=== PATIENT | female | born 1940 | race African-American/Black ===

== ENCOUNTER 2017-08-08 14:25 | Observation (INO) | payer MEDICARE, OTHER ==
[~2017-08-08] VITALS: Ht 165.1 cm; Wt 94.3 kg
[2017-08-08 15:32] LABS: BASOPHILS % 0.5 % (0.0-2.0); EOSINOPHILS % 0.7 % (0.0-5.0); HEMATOCRIT. 38.5 % (36.0-48.0); HEMOGLOBIN. 12.8 g/dL (12.0-16.0); LYMPHOCYTES % 35.9 % (20.0-50.0); MEAN CORPUSCULAR HEMOGLOBIN 29.8 pg (28.0-32.0); MEAN CORPUSCULAR VOLUME 89.8 fL (81.0-99.0); MEAN PLATELET VOLUME 9.2 fl (7.4-10.4); MONOCYTES % 8.1 % (2.0-8.0); NEUTROPHILS % 54.8 % (40.0-76.0); PLATELET 224 x1000/uL (130-400); RED BLOOD CELL COUNT 4.29 mill/uL (4.2-5.4); RED CELL DISTRIBUTION WIDTH 14.2 % (11.6-14.6)
[2017-08-08 15:36] LABS: CHLORIDE 108 mEq/L (98-107)
[2017-08-08 15:38] LABS: INR 1.1; PROTHROMBIN TIME 11.2 sec (9.4-11.6)
[2017-08-08 15:46] LABS: CARBON DIOXIDE 27 mEq/L (21-32)
[2017-08-08 15:48] LABS: TROPONIN I < 0.02 ng/mL (0.00-0.04)
[2017-08-08] MEDS ORDERED: ASPIRIN 325MG TABLET PO ONE (17:30)
[2017-08-08] MEDS ORDERED: CLONIDINE 0.1MG TABLET PO NR (20:00)
[2017-08-08] MEDS ORDERED: IPRATROPIUM/ALBUTEROL 0.5-3(2.5)MG/3ML NEB HHN NR (20:00)
[2017-08-08 20:54] VITALS: BP 203/83
[2017-08-08 22:58] VITALS: BP 203/83
[2017-08-08 23:00] LABS: BG CARBOXYHEMOGLOBIN 0.4 % (0.5-1.5); BG DEOXYHEMOGLOBIN 4.7 % (0.0-5.0); BG FRACTION INSPIRED OXYGEN 21; BG HCO3 ACT 25.4 mmol/L (22.0-26.0); BG METHEMOGLOBIN 0.3 % (0.0-1.5); BG OXYGEN SATURATION 95.3 % (92.0-98.5); BG OXYHEMOGLOBIN 94.6 % (94.0-97.0); BG PCO2 39.5 mmHg (35.0-45.0); BG PH 7.426 (7.350-7.450); BG PO2 74.1 mmHg (75.0-100.0); BG SAMPLE SITE LEFT BRACHIAL; BG TOTAL HEMOGLOBIN 13.2 g/dL (12.0-18.0); BG VENT MODE ROOM AIR
[2017-08-08] MEDS ORDERED: HYDROCODONE/ACETAMINOPHEN 5/325MG TABLET PO PRN (23:15)
[2017-08-08] MEDS ORDERED: ACETAMINOPHEN 650MG/20.3ML UDC PO PRN (23:30)
[2017-08-08] MEDS: FUROSEMIDE 40MG/4ML VIAL IVP SCH (23:46)
[2017-08-08] MEDS: ASPIRIN 81MG TABLET PO SCH (23:46)
[2017-08-08] MEDS: PANTOPRAZOLE 40MG DR TABLET PO SCH (23:46)
[2017-08-08] MEDS: LOSARTAN POTASSIUM 50 MG TABLET PO SCH (23:46)
[2017-08-09] VITALS: BP 191/66
[2017-08-09] MEDS ORDERED: AMLO2.5T2 PO (01:34)
[2017-08-09] MEDS ORDERED: CLON0.1T PO (01:35)
[2017-08-09] MEDS ORDERED: AMLO1TAB39 PO (01:36)
[2017-08-09 04:00] VITALS: BP 180/71
[2017-08-09] MEDS: HYDRALAZINE HCL 50MG TABLET PO SCH ×2 (05:40→12:41)
[2017-08-09] MEDS: CLONIDINE 0.2MG TABLET PO SCH ×2 (05:40→16:27)
[2017-08-09] MEDS: PANTOPRAZOLE 40MG DR TABLET PO SCH (06:25)
[2017-08-09 08:00] VITALS: BP 157/60
[2017-08-09 08:38] LABS: CARBON DIOXIDE 28 mEq/L (21-32); CHLORIDE 107 mEq/L (98-107)
[2017-08-09] MEDS: FUROSEMIDE 40MG/4ML VIAL IVP SCH (08:40)
[2017-08-09] MEDS: ASPIRIN 81MG TABLET PO SCH (08:40)
[2017-08-09] MEDS: LOSARTAN POTASSIUM 50 MG TABLET PO SCH (08:40)
[2017-08-09 08:48] LABS: TROPONIN I 0.02 ng/mL (0.00-0.04)
[2017-08-09] MEDS ORDERED: ENOXAPARIN 30MG/0.3ML SYR SUBCUT SCH (09:00)
[2017-08-09 12:00] VITALS: BP 149/58
[2017-08-09] MEDS ORDERED: MECLIZINE 25MG TABLET PO PRN (12:00)
[2017-08-09 16:00] VITALS: BP 164/62
[2017-08-09 16:31] VITALS: BP 149/58
[2017-08-10] MEDS ORDERED: FAMOTIDINE 20MG TABLET PO SCH (09:00)
== END 2017-08-09 17:34 | disposition home or self-care (01) ==
LOC: ER 15:42 → INTOOBSV 17:27 → 8WST 17:27 → ENRESERV 19:50
PROVIDERS: ADMIT Internal Medicine; ATTEND Internal Medicine
DX: I11.9 Hypertensive heart disease without heart failure (principal); M10.9 Gout, unspecified; E03.9 Hypothyroidism, unspecified; I51.7 Cardiomegaly; J98.11 Atelectasis; Z96.641 Presence of right artificial hip joint
CPT/HCPCS: 36415; 36600; 70450; 71010; 80053; 82375; 82805; 84443; 84484; 84550; 85025; 85610; 93005; 96372; 96374; 96376; 99285; G0378; J1650; J1940; J8597

== ENCOUNTER 2019-11-14 06:33 | Inpatient (IN) | payer MEDICARE, OTHER ==
[~2019-11-14] VITALS: Ht 165.1 cm; Wt 97.1 kg
[~2019-11-14 06:33] MED LIST: LEVO75TA7 MT
[2019-11-14] MEDS ORDERED: FAMOTIDINE 20MG/2ML VIAL IV ONE (06:45)
[2019-11-14] MEDS ORDERED: DIPHENHYDRAMINE 50MG/ML VIAL IV ONE (06:45)
[2019-11-14] MEDS ORDERED: METHYLPREDNISOLONE SOD SUCC 125 MG/2 ML VIAL IV ONE (06:45)
[2019-11-14 07:02] LABS: HEMATOCRIT. 38.8 % (36.0-48.0); LYMPHOCYTES % 53.3 % (20.0-50.0); MEAN CORPUSCULAR HEMOGLOBIN 30.2 pg (28.0-32.0); MEAN CORPUSCULAR VOLUME 90.2 fL (81.0-99.0); MEAN PLATELET VOLUME 9.2 fl (7.4-10.4); MONOCYTES % 10.4 % (2.0-8.0); NEUTROPHILS % 32.3 % (40.0-76.0); PLATELET 310 x1000/uL (130-400); RED CELL DISTRIBUTION WIDTH 14.7 % (11.6-14.6)
[2019-11-14 07:06] LABS: CHLORIDE 106 mEq/L (98-107); INR 0.9; PROTHROMBIN TIME 10.2 sec (9.6-11.0)
[2019-11-14] MEDS ORDERED: ACETAMINOPHEN 650MG SUPP PR PRN (11:45)
[2019-11-14] MEDS ORDERED: IPRATROPIUM/ALBUTEROL 0.5-3(2.5)MG/3ML NEB NEB PRN (11:45)
[2019-11-14] MEDS ORDERED: ONDANSETRON HCL 4MG/2ML INJ IV PRN (11:45)
[2019-11-14 12:55] LABS: BG BASE EXCESS -3.3 mmol/L (-2.0-2.0); BG CARBOXYHEMOGLOBIN 0.3 % (0.5-1.5); BG DEOXYHEMOGLOBIN 4.8 % (0.0-5.0); BG FRACTION INSPIRED OXYGEN 21; BG HCO3 ACT 21.5 mmol/L (22.0-26.0); BG METHEMOGLOBIN 0.4 % (0.0-1.5); BG OXYGEN SATURATION 95.2 % (92.0-98.5); BG OXYHEMOGLOBIN 94.5 % (94.0-97.0); BG PCO2 37.8 mmHg (35.0-45.0); BG PH 7.373 (7.350-7.450); BG PO2 75.8 mmHg (75.0-100.0); BG SAMPLE SITE RIGHT RADIAL; BG TOTAL HEMOGLOBIN 13.8 g/dL (12.0-18.0); BG VENT MODE ROOM AIR
[2019-11-14] MEDS: HYDRALAZINE 20MG/ML VIAL IV PRN ×2 (13:38→18:55)
[2019-11-14] MEDS: MORPHINE SULFATE 2 MG/ML CPJ (NOT FOR IM USE) IV PRN ×2 (13:38→23:05)
[2019-11-14] MEDS: DIPHENHYDRAMINE 50MG/ML VIAL IV SCH ×2 (13:38→18:55)
[2019-11-14] MEDS: DEXT 5%/0.45% NACL 1000ML 1,000 ML IV SCH (13:41)
[2019-11-14] MEDS: METHYLPREDNISOLONE SOD SUCC 40 MG/ML VIAL IV SCH ×2 (14:28→23:05)
[2019-11-14 15:10] LABS: HEMATOCRIT 38.9 % (36.0-48.0); MEAN CORPUSCULAR HEMOGLOBIN 30.3 pg (28.0-32.0); MEAN CORPUSCULAR VOLUME 90.3 fL (81.0-99.0); PLATELET 261 x1000/uL (130-400); RED BLOOD CELL COUNT 4.31 mill/uL (4.2-5.4); RED CELL DISTRIBUTION WIDTH 14.5 % (11.6-14.6)
[2019-11-14 15:14] LABS: CREATINE KINASE 202 IU/L (26-192)
[2019-11-14 15:16] LABS: CREATINE KINASE MB FRACTION < 1.0 ng/mL (0.5-3.6)
[2019-11-14 15:21] LABS: INR 0.9; PROTHROMBIN TIME 10.3 sec (9.6-11.0)
[2019-11-14 22:00] VITALS: BP 170/71
[2019-11-14] MEDS: NITROGLYCERIN OINT 1GM/INCH UDPKT TD SCH (23:06)
[2019-11-14 23:13] VITALS: BP 170/70
[2019-11-15] VITALS (10 sets, daily range): BP systolic 143–173; BP diastolic 60–85
[2019-11-15] MEDS: DEXT 5%/0.45% NACL 1000ML 1,000 ML IV SCH
[2019-11-15] MEDS: DIPHENHYDRAMINE 50MG/ML VIAL IV SCH ×4 (00:09→17:37)
[2019-11-15] MEDS: METHYLPREDNISOLONE SOD SUCC 40 MG/ML VIAL IV SCH ×2 (05:36→13:39)
[2019-11-15] MEDS: NITROGLYCERIN OINT 1GM/INCH UDPKT TD SCH ×2 (05:37→13:39)
[2019-11-15 06:41] LABS: BASOPHILS % 0.1 % (0.0-2.0); HEMATOCRIT. 36.2 % (36.0-48.0); HEMOGLOBIN. 12.3 g/dL (12.0-16.0); LYMPHOCYTES % 22.6 % (20.0-50.0); MEAN CORPUSCULAR HEMOGLOBIN 30.6 pg (28.0-32.0); MEAN CORPUSCULAR VOLUME 89.9 fL (81.0-99.0); MEAN PLATELET VOLUME 9.1 fl (7.4-10.4); MONOCYTES % 0.9 % (2.0-8.0); NEUTROPHILS % 76.4 % (40.0-76.0); PLATELET 257 x1000/uL (130-400); RED BLOOD CELL COUNT 4.03 mill/uL (4.2-5.4); RED CELL DISTRIBUTION WIDTH 14.6 % (11.6-14.6)
[2019-11-15 07:09] LABS: CHLORIDE 108 mEq/L (98-107)
[2019-11-15 07:22] LABS: CREATINE KINASE 151 IU/L (26-192); CREATINE KINASE MB FRACTION 2.5 ng/mL (0.5-3.6); HDL CHOLESTEROL 64 mg/dL (40-59)
[2019-11-15 07:24] LABS: T4 FREE 0.99 ng/dL (0.76-1.46)
[2019-11-15 07:26] LABS: LDL CHOLESTEROL 119 mg/dL (5-100)
[2019-11-15] MEDS ORDERED: FAMOTIDINE 20MG/2ML VIAL IV SCH (09:00)
[2019-11-15] MEDS ORDERED: ENOXAPARIN 30MG/0.3ML SYR SUBCUT SCH (09:00)
[2019-11-15] MEDS: MORPHINE SULFATE 2 MG/ML CPJ (NOT FOR IM USE) IV PRN (13:41)
[2019-11-15] MEDS ORDERED: HYDR-4135 MT (16:58)
[2019-11-16] MEDS ORDERED: ENOXAPARIN 40MG/0.4ML SYR SUBCUT SCH (09:00)
== END 2019-11-15 19:06 | disposition home or self-care (01) | DRG 915 ==
LOC: ER 06:33 → 5EST 13:16 → EDBEDREQSVC 13:18 → EDBEDREQ 13:18 → ENRESERV 20:20
PROVIDERS: ADMIT Internal Medicine; ATTEND Internal Medicine
PROC: 30233K1 Transfusion of Nonautologous Frozen Plasma into Peripheral Vein, Percutaneous Approach (ICD-10-PCS; principal; 2019-11-14)
DX: T78.3XXA Angioneurotic edema, initial encounter (principal); I50.33 Acute on chronic diastolic (congestive) heart failure; I33.0 Acute and subacute infective endocarditis; I13.0 Hypertensive heart and chronic kidney disease with heart failure and stage 1 through stage 4 chronic kidney disease, or unspecified chronic kidney disease; E78.00 Pure hypercholesterolemia, unspecified; E78.5 Hyperlipidemia, unspecified; M10.9 Gout, unspecified; N18.9 Chronic kidney disease, unspecified; I27.20 Pulmonary hypertension, unspecified; T46.5X5A Adverse effect of other antihypertensive drugs, initial encounter; Z88.0 Allergy status to penicillin; Z79.899 Other long term (current) drug therapy; Z88.8 Allergy status to other drugs, medicaments and biological substances; Y92.89 Other specified places as the place of occurrence of the external cause
CPT/HCPCS: 36415; 36600; 71045; 80053; 80061; 82375; 82550; 82553; 82805; 83036; 84439; 84443; 84484; 84550; 85025; 85027; 85384; 86850; 86900; 86927; 92610; 93306; 93970; 96374; 96375; 99291; J0360; J1200; J1650; J2270; J2405; J2920; J2930; J3490; P9017

== ENCOUNTER 2020-05-11 13:00 | Emergency (ER) | payer BC, MEDICARE, OTHER ==
[~2020-05-11] VITALS: Ht 175.3 cm; Wt 88.0 kg
[~2020-05-11 13:00] MED LIST changes: +HYDR-4135 MT
[2020-05-11] MEDS ORDERED: ACETAMINOPHEN 325MG TABLET PO ONE (14:15)
[2020-05-11] MEDS ORDERED: IBUPROFEN 600MG TABLET PO ONE (14:15)
[2020-05-11] MEDS ORDERED: HYDROCODONE/ACETAMINOPHEN 5/325MG TABLET PO ONE (15:00)
[2020-05-11 15:14] LABS: CHLORIDE 108 mEq/L (98-107); HEMATOCRIT. 34.7 % (36.0-48.0); HEMOGLOBIN. 11.2 g/dL (12.0-16.0); MEAN CORPUSCULAR HEMOGLOBIN 27.9 pg (28.0-32.0); MEAN CORPUSCULAR VOLUME 86.1 fL (81.0-99.0); MEAN PLATELET VOLUME 8.9 fl (7.4-10.4); PLATELET 240 x1000/uL (130-400); RED BLOOD CELL COUNT 4.03 mill/uL (4.2-5.4)
[2020-05-11 15:17] LABS: PROTHROMBIN TIME 10.9 sec (9.6-11.0)
[2020-05-11 16:45] LABS: PLATELET ESTIMATE NORMAL
[2020-05-11] MEDS ORDERED: ACETAMINOPHEN 500MG TABLET PO ONE (20:30)
[2020-05-11] MEDS ORDERED: HYDROCHLOROTHIAZIDE 25MG TABLET PO ONE (21:45)
[2020-05-11] MEDS ORDERED: AMLODIPINE 10MG TABLET PO ONE (21:45)
[2020-05-11] MEDS ORDERED: SULFAMETHOXAZOLE/TRIMETHOPRIM 800/160MG TABLET PO ONE (22:30)
[2020-05-12 00:16] VITALS: BP 259/96
[2020-06-22] MEDS ORDERED: HYDR-4135 MT (12:26)
[2020-06-22] MEDS ORDERED: LEVO75TA7 MT (17:25)
[2020-06-22] MEDS ORDERED: ALLO100T MT (17:26)
== END 2020-05-12 00:53 ==
LOC: ER 13:00 → CANBEDREQ 20:16 → ER 05-12 00:53
DX: I96 Gangrene, not elsewhere classified (principal); I10 Essential (primary) hypertension; R73.9 Hyperglycemia, unspecified; E05.90 Thyrotoxicosis, unspecified without thyrotoxic crisis or storm; Z88.0 Allergy status to penicillin; Z88.8 Allergy status to other drugs, medicaments and biological substances
CPT/HCPCS: 36415; 73630; 80053; 85025; 86140; 93005; 99285

== ENCOUNTER 2020-07-12 14:59 | Emergency (ER) | payer BC ==
[~2020-07-12] VITALS: Ht 170.2 cm; Wt 73.0 kg
[~2020-07-12 14:59] MED LIST changes: +ALLO100T MT
[2020-07-12] MEDS ORDERED: ALBUTEROL (0.083%) 2.5MG/3ML NEB HHN STA (15:35)
[2020-07-12] MEDS ORDERED: MAGNESIUM 2 G PREMIX 50 ML IV STA (15:35)
[2020-07-12] MEDS ORDERED: IPRATROPIUM BROMIDE (0.02%) 0.5MG/2.5ML NEB HHN STA (15:35)
[2020-07-12] MEDS ORDERED: METHYLPREDNISOLONE SOD SUCC 125 MG/2 ML VIAL IV STA (15:35)
[2020-07-12] MEDS ORDERED: AZITHROMYCIN 500 MG in DEXT 5% WATER 250 ML IV SCH (15:45)
[2020-07-12] MEDS ORDERED: IPRATROPIUM/ALBUTEROL 0.5-3(2.5)MG/3ML NEB HHN ONE (15:45)
[2020-07-12] MEDS ORDERED: VANCOMYCIN 1 G PREMIX 200 ML IV SCH (15:45)
[2020-07-12] MEDS ORDERED: FUROSEMIDE 20MG/2ML VIAL IVP ONE (15:45)
[2020-07-12 16:32] LABS: BASOPHILS % 1.4 % (0.0-2.0); EOSINOPHILS % 0.1 % (0.0-5.0); HEMOGLOBIN. 11.4 g/dL (12.0-16.0); LYMPHOCYTES % 23.6 % (20.0-50.0); MEAN CORPUSCULAR HEMOGLOBIN 27.8 pg (28.0-32.0); MEAN CORPUSCULAR VOLUME 85.8 fL (81.0-99.0); MEAN PLATELET VOLUME 7.9 fl (7.4-10.4); MONOCYTES % 14.3 % (2.0-8.0); NEUTROPHILS % 60.6 % (40.0-76.0); PLATELET 382 x1000/uL (130-400); RED BLOOD CELL COUNT 4.08 mill/uL (4.2-5.4); RED CELL DISTRIBUTION WIDTH 16.5 % (11.6-14.6)
[2020-07-12 16:39] LABS: CHLORIDE 93 mEq/L (98-107)
[2020-07-12 18:57] VITALS: BP 162/57
== END 2020-07-12 19:20 | disposition short-term general hospital (02) ==
LOC: ER 14:59 → CANBEDREQ 20:00
DX: I11.0 Hypertensive heart disease with heart failure (principal); I10 Essential (primary) hypertension; R09.02 Hypoxemia; Z98.890 Other specified postprocedural states; Z87.891 Personal history of nicotine dependence; Z88.0 Allergy status to penicillin
CPT/HCPCS: 36415; 71045; 80053; 83880; 85025; 85610; 87426; 96365; 96375; 99285; J0456; J1940; J2930; J3370; J3475; J7060

== ENCOUNTER 2020-08-03 17:23 | Emergency (ER) | payer BC ==
[~2020-08-03] VITALS: Ht 165.1 cm; Wt 82.0 kg
[2020-08-03 21:35] LABS: BASOPHILS % 1.7 % (0.0-2.0); EOSINOPHILS % 0.2 % (0.0-5.0); HEMATOCRIT. 29.6 % (36.0-48.0); HEMOGLOBIN. 9.6 g/dL (12.0-16.0); LYMPHOCYTES % 23.9 % (20.0-50.0); MEAN CORPUSCULAR HEMOGLOBIN 28.6 pg (28.0-32.0); MEAN CORPUSCULAR VOLUME 88.4 fL (81.0-99.0); MEAN PLATELET VOLUME 7.1 fl (7.4-10.4); MONOCYTES % 10.5 % (2.0-8.0); NEUTROPHILS % 63.7 % (40.0-76.0); PLATELET 446 x1000/uL (130-400); RED BLOOD CELL COUNT 3.34 mill/uL (4.2-5.4); RED CELL DISTRIBUTION WIDTH 16.3 % (11.6-14.6)
[2020-08-03 21:41] LABS: CHLORIDE 96 mEq/L (98-107)
[2020-08-03 21:43] LABS: PROTHROMBIN TIME 10.6 sec (9.6-11.0)
[2020-08-03 23:33] LABS: CLARITY URINE CLOUDY (CLEAR); COLOR URINE YELLOW (YELLOW); KETONES URINE NEGATIVE (NEGATIVE); LEUKOCYTE ESTERASE URINE NEGATIVE (NEGATIVE); NITRITE URINE NEGATIVE (NEGATIVE); OCCULT BLOOD URINE NEGATIVE (NEGATIVE); PROTEIN URINE 2+ (NEGATIVE); SPECIFIC GRAVITY URINE 1.018 (1.005-1.030); UROBILINOGEN URINE 0.2 E.U./dL (0.2-1.0)
[2020-08-04] MEDS ORDERED: CEFTRIAXONE 1 G PREMIX 50 ML IV NR (00:15)
[2020-08-04] MEDS ORDERED: AZITHROMYCIN 500 MG in DEXT 5% WATER 250 ML IV SCH (00:30)
[2020-08-04] MEDS ORDERED: FUROSEMIDE 40MG/4ML VIAL IVP NR (00:30)
[2020-08-04] MEDS ORDERED: HYDRALAZINE HCL 50MG TABLET PO ONE (01:15)
[2020-08-04 01:32] VITALS: BP 169/72
== END 2020-08-04 01:50 | disposition short-term general hospital (02) ==
LOC: ER 17:23 → CANBEDREQ 08-04 05:17
DX: J90 Pleural effusion, not elsewhere classified (principal); E87.70 Fluid overload, unspecified; I11.0 Hypertensive heart disease with heart failure; I50.9 Heart failure, unspecified; E05.90 Thyrotoxicosis, unspecified without thyrotoxic crisis or storm; Z79.899 Other long term (current) drug therapy; Z88.0 Allergy status to penicillin
CPT/HCPCS: 36415; 70450; 71045; 80053; 81003; 83605; 83880; 84145; 84484; 85025; 85610; 87040; 93005; 96365; 96368; 96375; 99285; J0456; J0696; J1940; J7060